=== PATIENT | male | born 1980 | race Caucasian/White ===

== ENCOUNTER 2017-12-07 18:05 | Emergency (ER) | payer SELFPAY ==
[2017-12-07 18:27] VITALS: BP 117/76; PULSE 74; TEMP 98.3; BMI 34.4
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
--- NOTE | 2017-12-07 18:38 | PDOC ---
History of Present Illness - General Chief Complaint: Injury Stated Complaint: PAIN Time Seen by Provider: 12/07/17 18:26 History Source: Patient - History of Present Illness Occurred: reports: just prior to arrival Past History - Past Medical History Allergies/Adverse Reactions: Allergies Allergy/AdvReac Type Severity Reaction Status Date / Time No Known Allergies Allergy Verified 12/07/17 18:24 Home Medications: Ambulatory Orders No Home Medications 0 dose .ROUTE UTDICT 01/23/14 COPD: No - Immunization History Immunization Up to Date: Yes - Suicide/Smoking/Psychosocial Hx Smoking History: Current some day smoker Number of Cigarettes Smoked Daily: 2 Information on smoking cessation initiated: No 'Breaking Loose' booklet given: 01/23/14 Hx Alcohol Use: No Drug/Substance Use Hx: No Substance Use Type: None Review of Systems - Review of Systems Musculoskeletal: Yes: Joint Pain, Joint Swelling *Physical Exam - Vital Signs Last Vital Signs Temp Pulse Resp BP Pulse Ox 98.3 F 74 18 117/76 100 12/07/17 18:26 12/07/17 18:26 12/07/17 18:26 12/07/17 18:26 12/07/17 18:26 - Physical Exam General Appearance: Yes: Appropriately Dressed. No: Apparent Distress HEENT: positive: Normal Voice Respiratory/Chest: negative: Respiratory Distress Musculoskeletal: positive: Other (flexion deformity of DIP joint of L 3rd digit c/w mallet finger) Integumentary: positive: Dry, Warm Neurologic: positive: Fully Oriented, Alert, Normal Mood/Affect Medical Decision Making - Medical Decision Making 12/07/17 18:37 37 yo M, p/w L 3rd digit injury today after striking finger against floor per pt See exam Mallet finger R/o fx -xr -splint -pain control 12/07/17 19:16 Xr neg. Splint placed and ortho referral given *DC/Admit/Observation/Transfer Diagnosis at time of Disposition: Mallet finger of left finger(s) - Discharge Dispostion Disposition: HOME - Referrals Referrals: Yared Hale MD [Staff Physician] - - Patient Instructions Printed Discharge Instructions: DI for Mallet Finger Additional Instructions: Tiene un dedo garcia que es cecille deformidad en flexin de la articulacin distal de taylor dedo. Te has lesionado un tendn. Es esencial que mantenga el dedo en tablilla ronni las prximas 6-8 semanas. Mantenga la frula encendida, incluso mientras duerme. Si tiene que quitar la frula, apoye taylor dedo con otro dedo. Por favor, renetta un seguimiento con el Dr. Hale de ortopedia en 1 a 2 semanas para cecille mayor gestin - Post Discharge Activity
[2017-12-07] MEDS ORDERED: IBUPROFEN 400 MG TABLET (FP) PO ONE ×2 (19:17→19:18)
== END 2017-12-07 19:20 | disposition home or self-care (01) ==
LOC: JERFT 18:05
PROC: 2W3KX1Z Immobilization of Left Finger using Splint (ICD-10-PCS; principal; 2017-12-07)
DX: M20.012 Mallet finger of left finger(s) (principal); W22.8XXA Striking against or struck by other objects, initial encounter; Y93.89 Activity, other specified; Y92.89 Other specified places as the place of occurrence of the external cause; Y99.0 Civilian activity done for income or pay
CPT/HCPCS: 73140-TC-LT; 99281-25

== ENCOUNTER 2018-09-27 18:20 | Emergency (ER) | payer OTHER ==
[2018-09-27 18:36] VITALS: BP 127/84; PULSE 81; TEMP 98.7
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
[2018-09-27] MEDS ORDERED: CYCLOBENZAPRINE HCL 10 MG TABLET (FP) PO ONE (19:31)
[2018-09-27] MEDS ORDERED: KETOROLAC TROMETHAMINE 60 MG/2 ML VIAL IM ONE (19:31)
[2018-09-27] MEDS ORDERED: CYCLOBENZAPRINE HCL 10 MG TABLET (FP) ONE (19:33)
[2018-09-27] MEDS ORDERED: KETOROLAC TROMETHAMINE 60 MG/2 ML VIAL ONE (19:33)
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
== END 2018-09-27 19:41 | disposition home or self-care (01) ==
LOC: JER 18:20 → JERFT 18:20
DX: M62.830 Muscle spasm of back (principal); M25.511 Pain in right shoulder; M25.512 Pain in left shoulder; V44.5XXA Car driver injured in collision with heavy transport vehicle or bus in traffic accident, initial encounter; Y92.411 Interstate highway as the place of occurrence of the external cause; Y93.89 Activity, other specified; Y99.8 Other external cause status
CPT/HCPCS: 72100-TC-FY; 99281-25

== ENCOUNTER 2022-02-24 10:43 | Emergency (ER) | payer OTHER ==
[2022-02-24 11:27] VITALS: BP 106/74; PULSE 85; TEMP 98.5; BMI 30.9
[2022-02-24 12:35] LABS: THROAT:GRP A STREP NOT DETECTED (NOTDETECTED)
[2022-02-25 10:09] LABS: SARS-CoV-2 NAA Not Detected (Not Detected)
== END 2022-02-24 12:45 | disposition home or self-care (01) ==
LOC: JER 10:43
DX: J02.9 Acute pharyngitis, unspecified (principal); J06.9 Acute upper respiratory infection, unspecified
CPT/HCPCS: 71046-TC-FY; 87651; 87804; 99284-25; C9803-CS; U0003; U0005